=== PATIENT | male | born 1995 | race Caucasian/White ===

== ENCOUNTER 2025-02-09 07:06 | Emergency (ER) | payer OTHER, SELFPAY ==
[2025-02-09 07:18] VITALS: BP 144/102; PULSE 70; TEMP 36.5; O2SAT 98; BMI 27.8
--- NOTE | 2025-02-09 07:36 | CT_ITS ---
The [address] [address] Patient Name: PARAMJIT STEIN MRN: [id number] date: 1995 Sex: M Assigned Patient Location: ED.MAIN Current Patient Location: ED.MAIN Accession/Order Number: [id number] Exam Date: 02/09/2025 10:19 Report Date: 02/09/2025 10:21 At the request of: SANKET ALEXANDRE MD Procedure: CT abdomen pelvis wo con CT ABDOMEN AND PELVIS WITHOUT INTRAVENOUS CONTRAST: CLINICAL HISTORY: left flank pain, r/o stone COMPARISON: None TECHNIQUE: Spiral images were obtained through the abdomen and pelvis without intravenous contrast. This CT exam was performed using one or more following dose reduction techniques: Automated exposure control, adjustment of the mA and/or kV according to patient size, or use of iterative reconstruction technique. FINDINGS: Lung Bases: [No acute process] Organs:Suboptimal evaluation due to lack of IV contrast. Liver gallbladder pancreas spleen and adrenal glands appear unremarkable. Punctate stone inferior pole right kidney. Obstructing calculus left UPJ region measuring 5 mm. Aorta appears normal in caliber.[ GI: Stomach is grossly unremarkable. Small bowel appears nondilated. No acute colonic abnormality.[ Pelvis:[Urinary bladder and prostate gland appear unremarkable.] Peritoneum/Retroperitoneum:No free air or free fluid or lymphadenopathy.[ Abd wall/Bones:Abdominal wall demonstrate no acute findings. Osseous structures demonstrate no acute process.[ CT/CT abdomen pelvis wo con IMPRESSION: 5 mm obstructing calculus left UPJ region. Right nephrolithiasis. Impression dictated by: Fabien Lemon Jr., DSulemanOSuleman 02/09/2025 10:21 AM [facility] Electron[facility] authenticated by: [id number] Y Date: 02/09/2025 10:21
--- NOTE | 2025-02-09 07:37 | ED.GENADUL1 ---
HPI HPI - General Adult General Chief complaint: Abdominal Pain Stated complaint: L FLANK PAIN Time Seen by Provider: 02/09/25 07:12 Source: patient Mode of arrival: walk-in Limitations: no limitations History of Present Illness HPI narrative: 29 male presents for continuous left-sided abdominal pain. It woke him up at 6:00 this morning, about an hour and a half ago. It feels like a kidney stone. He has been nauseous. No dysuria or hematuria or injury. Related Data Home Medications ?Medication ?Instructions ?Recorded ?Confirmed atorvastatin 20 mg tablet mg 02/09/25 dextroamphetamine-amphetamine ER PO 02/09/25 20 mg 24hr capsule,extend release Previous Rx's ?Medication ?Instructions ?Recorded ondansetron 4 mg disintegrating 4 mg PO Q6H PRN nausea and 02/09/25 tablet vomiting #20 tabs oxycodone-acetaminophen 5 mg-325 1 tab PO Q6H PRN pain 5 days #20 02/09/25 mg tablet (Percocet) tabs tamsulosin 0.4 mg capsule (Flomax) 0.4 mg PO DAILY #7 caps 02/09/25 Allergies Allergy/AdvReac Type Severity Reaction Status Date / Time No Known Drug Allergies Allergy Verified 02/09/25 07:24 Opioid HPI Opioid Management Most Recent Opioid Data: Last Pain Scale 0 Today, 09:39 Last ED Pain Assessment Today, 08:13 Last MAR Pain Assessment Today, 07:40 Review of Systems ROS Narrative A ten point review of systems is negative except as noted above. PFSH PFSH Social History Little interest or pleasure in doing things: not at all Feeling down, depressed, or hopeless: not at all Exam Narrative Exam Narrative: Nurses note and vital signs reviewed and patient is not hypoxic. General: The patient is standing and pacing in the room. Skin: Warm, dry, mild pallor noted. There is no rash noted. Head: Normocephalic, atraumatic Eye: Normal conjunctiva, no drainage Ears, Nose, Mouth, and Throat: oral mucosa is moist. Nares patent. Cardiovascular: Regular Rate and Rhythm Respiratory: Patient is in no distress, no accessory muscle use, lungs are clear to auscultation, no wheezing, rales or rhonchi Back: non-tender, no CVA tenderness bilaterally to percussion. No bruise or rash GI: Soft and nontender Musculoskeletal: All joints have full range of motion Neurological: A&O, normal speech Psychiatric: Cooperative Constitutional Vital Signs, click to edit/add: Last Vital Signs Temp 97.7 F 02/09/25 07:18 Pulse 74 02/09/25 09:39 Resp 15 02/09/25 09:39 BP 127/77 02/09/25 09:39 Pulse Ox 98 02/09/25 09:39 O2 Del Method Room Air 02/09/25 09:39 Course Vital Signs Vital signs: Vital Signs Temperature 97.7 F 02/09/25 07:18 Pulse Rate 70 02/09/25 07:18 Respiratory Rate 20 02/09/25 07:18 Blood Pressure 144/102 H 02/09/25 07:18 Pulse Oximetry 98 02/09/25 07:18 Oxygen Delivery Method Room Air 02/09/25 07:18 Temperature 97.7 F 02/09/25 07:18 Pulse Rate 74 02/09/25 09:39 Respiratory Rate 15 02/09/25 09:39 Blood Pressure 127/77 02/09/25 09:39 Pulse Oximetry 98 02/09/25 09:39 Oxygen Delivery Method Room Air 02/09/25 09:39 Medical Decision Making MDM Narrative Medical decision making narrative: 5 mm proximal ureteral stone is found on the left side. His pain is under control and he will be discharged home on Percocet and Flomax and Zofran. He has an established urologist in [place] and he will follow-up with him and he was given a urine strainer and a specimen cup. Treatment diagnosis and follow-up were discussed with the patient. Lab Data Lab results reviewed: Yes I reviewed the patient's lab results Labs: Lab Results 02/09/25 02/09/25 Range/Units 07:21 07:25 WBC 12.7 H (4.0-11.0) 10^3/uL RBC 6.09 (4.70-6.10) 10^6/uL Hgb 17.5 (14.0-18.0) g/dL Hct 48.9 (42.0-54.0) % MCV 80.3 (80.0-94.0) fL MCH 28.7 (25.9-34.0) pg MCHC 35.8 H (29.9-35.2) g/dL RDW 12.6 (11.0-15.0) % Plt Count 230 (150-450) 10^3/uL MPV 10.9 (9.5-13.5) fL Neut % (Auto) 55.5 (43.0-75.0) % Lymph % (Auto) 34.0 (20.5-60.0) % [place] % (Auto) 7.4 (1.7-12.0) % Eos % (Auto) 1.9 (0.9-7.0) % Baso % (Auto) 0.4 (0.2-2.0) % Neut # (Auto) 7.0 H (1.4-6.5) 10^3/uL Lymph # (Auto) 4.3 H (1.2-3.8) 10^3/uL [place] # (Auto) 0.9 H (0.3-0.8) 10^3/uL Eos # (Auto) 0.2 (0.0-0.7) 10^3/uL Baso # (Auto) 0.1 (0.0-0.1) 10^3/uL Abs Immat Gran (auto) 0.10 H (0.00-0.03) 10^3/uL Imm/Tot Granulo (auto) 0.8 H (0.0-0.5) % Sodium 142 (136-145) mmol/L Potassium 3.9 (3.5-5.1) mmol/L Chloride 103 (98-107) mmol/L Carbon Dioxide 24.6 (21.0-32.0) mmol/L Anion Gap 18.3 BUN 17.0 (7.0-18.0) mg/dL Creatinine 0.87 (0.70-1.30) mg/dL Est GFR ( Amer) >60 (>=60 mL/min/1.73m^2) Est GFR (Non-Af Amer) >60 (>=60 mL/min/1.73m^2) BUN/Creatinine Ratio 19.5 Glucose 101 (74-106) mg/dL Calcium 9.8 (8.5-10.1) mg/dL Urine Color Brown A (YELLOW) Urine Clarity Sl cloudy (CLEAR) Urine pH 5.5 (5.0-9.0) Ur Specific [place] >=1.030 A (1.005-1.025) Urine Protein 100 A (NEG/TRACE) mg/dL Urine Glucose (UA) Negative (NEGATIVE) mg/dL Urine Ketones Negative (NEGATIVE) mg/dL Urine Occult Blood Large A (NEGATIVE) Urine Nitrite Negative (NEGATIVE) Urine Bilirubin Negative (NEGATIVE) Urine Urobilinogen 1.0 (0.2-1.0) EU/dL Ur Leukocyte Esterase Negative (NEGATIVE) Urine RBC 75-100 A (0-2) #/HPF Urine WBC None seen (NONE SEEN) #/HPF Ur Squamous Epith Cells Rare (NONE/RARE) #/LPF Urine Crystals Seen A (None Seen) #/HPF Calcium Oxalate Crystal Rare Urine Bacteria Small A (NONE SEEN) #/HPF Urine Casts None seen (NONE SEEN) #/LPF Urine Mucus Trace A (NONE SEEN) Ur [place] Indicated[place] [place] - abdomen: Radiologist's impression: ITS Impressions Abdomen/Pelvis CT 02/09/25 07:36 IMPRESSION: 5 mm obstructing calculus left UPJ region. Right nephrolithiasis. Impression dictated by: Fabien Lemon Jr., D.O. 02/09/2025 10:21 AM Dictation Location: [place] [address] Electronically authenticated by: [id number] Y Date: 02/09/2025 10:21 Discharge Plan Discharge Chief Complaint: Abdominal Pain Clinical Impression: Kidney stone Patient Disposition: Home, Self-Care Time of Disposition Decision: 10:54 Condition: Good Mode of Transportation: Private Vehicle Prescriptions / Home Meds: New tamsulosin [Flomax] 0.4 mg capsule 0.4 mg PO DAILY Qty: 7 0RF ondansetron 4 mg tablet,disintegrating 4 mg PO Q6H PRN (Reason: nausea and vomiting) Qty: 20 0RF oxycodone-acetaminophen [Percocet] 5-325 mg tablet 1 tab PO Q6H PRN (Reason: pain) 5 Days Qty: 20 0RF No Action atorvastatin 20 mg tablet dextroamphetamine-amphetamine 20 mg capsule,extended release 24hr PO Print Language: Upper Sorbian Instructions: Kidney Stones (ED), How to Strain Your Urine (ED) Additional Instructions: Follow-up with your established urologist. Referrals: Physician,Non-Staff, MD [Physician] - 1 week
[2025-02-09] MEDS: MORPHINE SULFATE 4 MG/ML VIAL IV (07:40)
[2025-02-09] MEDS: 0.9 % SODIUM CHLORIDE 1,000 ML 1000 ML IV (07:41)
[2025-02-09 07:52] VITALS: BP 131/93; PULSE 64; O2SAT 95
[2025-02-09 07:54] LABS: Hematocrit 48.9 % (42.0-54.0); Hemoglobin 17.5 g/dL (14.0-18.0); Immature Granulocytes Abs Auto 0.10 10^3/uL (0.00-0.03); Immature Granulocytes Pct Auto 0.8 % (0.0-0.5); Lymphocytes Absolute Auto 4.3 10^3/uL (1.2-3.8); Mean Corpuscular HGB Conc 35.8 g/dL (29.9-35.2); Mean Corpuscular Hemoglobin 28.7 pg (25.9-34.0); Mean Corpuscular Volume 80.3 fL (80.0-94.0); Platelet Count 230 10^3/uL (150-450); Red Blood Count 6.09 10^6/uL (4.70-6.10); White Blood Count 12.7 10^3/uL (4.0-11.0)
[2025-02-09 07:56] LABS: Glucose Urine UA NEGATIVE (NEGATIVE)
[2025-02-09 08:04] LABS: Anion Gap 18.3; Blood Urea Nitrogen 17.0 mg/dL (7.0-18.0); Calcium 9.8 mg/dL (8.5-10.1); Carbon Dioxide 24.6 mmol/L (21.0-32.0); Chloride 103 mmol/L (98-107); Estimated GFR (African America >60 (>=60 mL/min/1.73m^2); Estimated GFR (Non-African Ame >60 (>=60 mL/min/1.73m^2); Glucose 101 mg/dL (74-106); Potassium 3.9 mmol/L (3.5-5.1); Sodium 142 mmol/L (136-145)
[2025-02-09 08:11] VITALS: BP 131/97; PULSE 63; O2SAT 98
[2025-02-09 08:13] LABS: Cast Seen? NONE SEEN #/LPF (NONE SEEN); Crystals Seen? Seen #/HPF (None Seen); Urine Culture Indicated YES-FRMC
[2025-02-09 09:39] VITALS: BP 127/77; PULSE 74; O2SAT 98
[2025-02-09 11:16] VITALS: BP 117/88; PULSE 80; O2SAT 99
== END 2025-02-09 11:22 | disposition home or self-care (01) ==
PROVIDERS: Emergency Provider Emergency Medicine; PCP Family Medicine
DX: N20.0 Calculus of kidney (principal); R10.32 Left lower quadrant pain; R11.0 Nausea
CPT/HCPCS: 36415; 74176; 80048; 81001; 85025; 87086; 96374; 96375; 99284; J2270; J2405